=== PATIENT | female | born 1955 | race Caucasian/White ===

== ENCOUNTER 2023-01-06 14:20 | Emergency (ER) | payer OTHER ==
[~2023-01-06] VITALS: Ht 167.6 cm; Wt 67.6 kg
[2023-01-06 14:29] VITALS: BP_SYST 129; PULSE 72; RESP 18; TEMP 97.8; O2SAT 98
--- NOTE | 2023-01-06 14:41 | NUR ---
PT PLACED IN [facility] ROOM, NO ROOMS/BEDS/CHAIRS AVAILABLE IN ER AT THIS TIME. ED SATURATED. DR SANABRIA AND SCREW CUTTER MADE AWARE. VSS.
[2023-01-06] MEDS ORDERED: iohexoL 350 mgI/mL, 100 ML INFUS..BTL IV ONE (15:48)
[2023-01-06 16:04] LABS: BASOPHILS # (AUTO) 0.1 K/uL (0.0-0.2); BASOPHILS % (AUTO) 1.1 % (0.0-2.0); EOSINOPHILS # (AUTO) 0.2 K/uL (0.0-0.4); EOSINOPHILS % (AUTO) 2.6 % (0.0-4.0); HEMATOCRIT 39.8 % (36-48); HEMOGLOBIN 13.2 g/dL (12.0-16.0); LYMPHOCYTES # (AUTO) 3.1 K/uL (1.0-5.5); LYMPHOCYTES % (AUTO) 40.7 % (20.5-51.5); MEAN CORPUSCULAR HEMOGLOBIN 31 pg (27-31); MEAN CORPUSCULAR HGB CONC 33 % (32-36); MEAN CORPUSCULAR VOLUME 92 fL (79.0-98.0); MONOCYTES # (AUTO) 0.6 K/uL (0.0-1.0); MONOCYTES % (AUTO) 8.1 % (1.7-9.3); NEUTROPHILS # (AUTO) 3.6 K/uL (1.8-7.7); NEUTROPHILS % (AUTO) 47.5 % (40.0-70.0); PLATELET COUNT (AUTO) 263 K/uL (130-430); RED BLOOD CELL COUNT(AUTO) 4.31 MIL/uL (4.2-6.2); RED CELL DISTRIBUTION WIDTH 13.3 % (9.0-15.0); WHITE BLOOD COUNT (AUTO) 7.6 K/uL (4.8-10.8)
[2023-01-06 16:15] LABS: ALANINE AMINOTRANSFERASE 23 U/L (12-78); ALBUMIN 3.7 g/dL (3.4-4.8); ANION GAP 8 (5-15); ASPARTATE AMINOTRANSFERASE 19 U/L (10-37); CALCIUM 9.4 mg/dL (8.4-11.0); CHLORIDE 98 mmol/L (98-107); CREATININE 1.16 mg/dL (0.55-1.30); GFR AFRICAN AMERICAN 60 mL/min (>90); GLUCOSE 160 mg/dL (74-106); PHOSPHORUS 3.3 mg/dL (2.7-4.5); TOTAL BILIRUBIN 0.5 mg/dL (0.0-1.0); UREA NITROGEN, BLOOD 23 mg/dL (8-21)
[2023-01-06] MEDS ORDERED: MECLIZINE HCL 25 MG TABLET (ANITVERT) PO ONE (16:30)
[2023-01-06] MEDS ORDERED: LORazepam 2 MG/ML VIAL IVP ONE (16:30)
[2023-01-06] MEDS ORDERED: NACL 0.9% 1,000 ML IV ONE (16:30)
--- NOTE | 2023-01-06 16:46 | NUR ---
TELE NEURO REQEUSTED ORDERED BY DR. SANABRIA
[2023-01-06] MEDS ORDERED: DIPHENHYDRAMINE INJ 50 MG/ML VIAL IVP ONE (17:00)
[2023-01-06] MEDS ORDERED: DEXAMETHASONE SOD PHOSPHATE 10 MG/ML VIAL IVP ONE (17:00)
[2023-01-06] MEDS ORDERED: METOCLOPRAMIDE HCL 10 MG/2 ML VIAL IVP ONE (17:00)
--- NOTE | 2023-01-06 17:23 | NUR ---
DR. MARTINEZ, [facility], CALLED BACK TO SPEAK TO DR. SANABRIA REGARDING PT STATUS
[2023-01-06] MEDS ORDERED: POTASSIUM CHLORIDE 20 MEQ/PKT PACKET PO ONE (17:30)
--- NOTE | 2023-01-06 17:40 | NUR ---
TRANSFER INFO [facility] DR. GROVE [phone] ETA [id number] SPOKE TO [facility]
--- NOTE | 2023-01-06 19:18 | NUR ---
Patient to be transferred to . Is being transferred due to higher level of care. Receiving facility has accepting physician and available space. ER physician has signed transfer form. Patient or responsible alliance party has agreed to transfer and signed form. Patient belongings inventoried and will be sent with patient. Copy of nursing notes, lab reports, EKG, Physicians Orders and X-rays to be sent with patient. Report called to at receiving facility. Receiving physician is . ambulance service has been called for transfer. ETA is .
[2023-01-06 19:19] VITALS: BP_SYST 132; PULSE 79
--- NOTE | 2023-01-06 19:20 | NUR ---
PT TRANSFERED TO [facility]
== END 2023-01-06 19:19 | disposition short-term general hospital (02) ==
LOC: SED 14:20
DX: R42 Dizziness and giddiness (principal); E11.9 Type 2 diabetes mellitus without complications; I10 Essential (primary) hypertension; Z91.041 Radiographic dye allergy status; Z79.899 Other long term (current) drug therapy
CPT/HCPCS: 99285; 96374; 96375; 70450; 71045; 96361; 80053; 83735; 84100; 85025; 84484; 36415; 93005; 76376; J8597; J1100; J1200; J2060; J2765; J7030; Q9967